=== PATIENT | male | born 1945 | race Caucasian/White ===

== ENCOUNTER → 2018-09-20 09:10 | Outpatient (CLI) | payer OTHER, SELFPAY ==
[2018-09-20 09:46] LABS: Hemoglobin A1C% w Est Avg Glu 8.7 % (4.0-6.0)
[2018-09-20 09:53] LABS: Creatinine Urine Random 40.2 mg/dL
[2018-09-20 10:01] LABS: Microalbumi Creatinin Ratio Ur 14.9 ug/mg CR (<30); Microalbumin Urine Random < 0.6 mg/dL (0-1.6)
[2018-09-20 10:07] LABS: Alanine Aminotransferase 22 IU/L (21-72); Albumin 4.1 g/dL (3.5-5.0); Albumin Globulin Ratio 1.5 (1.0-2.8); Alkaline Phosphatase 61 U/L (38-126); Aspartate Aminotransferase 16 IU/L (17-59); Bilirubin Total 0.3 mg/dL (0.2-1.3); Blood Urea Nitrogen 25 mg/dL (9-20); Carbon Dioxide 27 mmol/L (22-32); Chloride 102 mmol/L (98-107); Cholesterol 255 mg/dL (140-199); Estimated Glomerular Filt Rate > 60.0 mL/min (>60); Globulin 2.7 g/dL (1.7-4.1); Glucose 181 mg/dL (80-110); HDL Cholesterol 29 mg/dL (40-60); HEMOLYSIS < 15 (0-50); LDL Cholesterol Calculated 185 mg/dL (<100); Potassium 5.3 mmol/L (3.4-5.1); Sodium 142 mmol/L (137-145); Total Protein 6.8 g/dL (6.3-8.2); Triglycerides 204 mg/dL (35-150)
== END ==
PROVIDERS: Family Provider Internal Medicine Cardiovascular Disease; PCP Physician Assistant; Referring Provider Ophthalmology; Visit Provider Physician Assistant
DX: E11.8 Type 2 diabetes mellitus with unspecified complications (principal); E78.2 Mixed hyperlipidemia; I10 Essential (primary) hypertension; I25.10 Atherosclerotic heart disease of native coronary artery without angina pectoris
CPT/HCPCS: 36415; 80053; 80061; 82043; 82570; 83036

== ENCOUNTER → 2018-11-22 10:57 | Outpatient (CLI) | payer OTHER, SELFPAY ==
[2018-11-24 19:36] LABS: Fecal Immunochemical Test NOT DETECTED
== END ==
PROVIDERS: Family Provider Internal Medicine Cardiovascular Disease; PCP Physician Assistant; Visit Provider Physician Assistant
DX: Z12.11 Encounter for screening for malignant neoplasm of colon (principal)
CPT/HCPCS: 82274

== ENCOUNTER → 2019-05-01 10:21 | Outpatient (CLI) | payer OTHER, SELFPAY ==
[2019-05-01 12:13] LABS: Creatinine Urine Random 84.4 mg/dL
[2019-05-01 12:14] LABS: Alanine Aminotransferase 15 IU/L (21-72); Albumin 4.1 g/dL (3.5-5.0); Albumin Globulin Ratio 1.4 (1.0-2.8); Alkaline Phosphatase 67 U/L (38-126); Aspartate Aminotransferase 16 IU/L (17-59); BUN Creatinine Ratio 18.2 (6-22); Bilirubin Total 0.2 mg/dL (0.2-1.3); Blood Urea Nitrogen 20 mg/dL (9-20); Calcium 9.7 mg/dL (8.4-10.2); Carbon Dioxide 29 mmol/L (22-32); Chloride 102 mmol/L (98-107); Cholesterol 252 mg/dL (140-199); Estimated Glomerular Filt Rate > 60.0 mL/min (>60); Globulin 2.9 g/dL (1.7-4.1); Glucose 142 mg/dL (80-110); HDL Cholesterol 22 mg/dL (40-60); HEMOLYSIS < 15 (0-50); LDL Cholesterol Calculated 151 mg/dL (<100); Sodium 140 mmol/L (137-145); Triglycerides 393 mg/dL (35-150)
[2019-05-01 12:19] LABS: Microalbumi Creatinin Ratio Ur 29.6 ug/mg CR (<30); Microalbumin Urine Random 2.5 mg/dL (0-1.6)
== END ==
PROVIDERS: PCP Physician Assistant; Visit Provider Physician Assistant
DX: E11.8 Type 2 diabetes mellitus with unspecified complications (principal); E78.2 Mixed hyperlipidemia; I10 Essential (primary) hypertension; I25.10 Atherosclerotic heart disease of native coronary artery without angina pectoris; Z79.4 Long term (current) use of insulin
CPT/HCPCS: 36415; 80053; 80061; 82043; 82570; 83036

== ENCOUNTER → 2019-10-02 10:46 | Outpatient (CLI) | payer OTHER, MEDICAID, SELFPAY ==
[2019-10-02 12:30] LABS: Hemoglobin A1C% w Est Avg Glu 7.6 % (4.0-6.0)
[2019-10-02 12:31] LABS: Creatinine Urine Random 129.1 mg/dL
[2019-10-02 12:32] LABS: Alanine Aminotransferase 14 IU/L (<50); Albumin Globulin Ratio 1.5 (1.0-2.8); Alkaline Phosphatase 58 U/L (38-126); Aspartate Aminotransferase 22 IU/L (17-59); Bilirubin Total 0.4 mg/dL (0.2-1.3); Blood Urea Nitrogen 16 mg/dL (9-20); Calcium 9.7 mg/dL (8.4-10.2); Carbon Dioxide 29 mmol/L (22-32); Chloride 103 mmol/L (98-107); Cholesterol 261 mg/dL (140-199); Estimated Glomerular Filt Rate > 60.0 mL/min (>60); Globulin 2.7 g/dL (1.7-4.1); Glucose 143 mg/dL (80-110); HDL Cholesterol 24 mg/dL (40-60); HEMOLYSIS < 15 (0-50); LDL Cholesterol Calculated 186 mg/dL (<100); Sodium 140 mmol/L (137-145); Total Protein 6.7 g/dL (6.3-8.2); Triglycerides 256 mg/dL (35-150)
[2019-10-02 12:37] LABS: Microalbumi Creatinin Ratio Ur 35.6 ug/mg CR (<30); Microalbumin Urine Random 4.6 mg/dL (0-1.6)
[2019-10-02 12:39] LABS: Potassium 5.7 mmol/L (3.4-5.1)
[2019-10-02 13:03] LABS: Prostate Specific Antigen Scrn 15.2 ng/mL (0.1-4.0)
== END ==
PROVIDERS: PCP Physician Assistant; Visit Provider Physician Assistant
DX: Z12.5 Encounter for screening for malignant neoplasm of prostate (principal); E11.8 Type 2 diabetes mellitus with unspecified complications; E78.2 Mixed hyperlipidemia; I10 Essential (primary) hypertension; I25.10 Atherosclerotic heart disease of native coronary artery without angina pectoris
CPT/HCPCS: 36415; 80053; 80061; 82043; 82570; 83036; G0103

== ENCOUNTER → 2019-10-09 09:49 | Outpatient (CLI) | payer OTHER, MEDICAID, SELFPAY ==
[2019-10-09 11:26] LABS: HEMOLYSIS < 15 (0-50); Potassium 4.5 mmol/L (3.4-5.1)
== END ==
PROVIDERS: PCP Physician Assistant; Visit Provider Physician Assistant
DX: E87.5 Hyperkalemia (principal)
CPT/HCPCS: 36415; 84132

== ENCOUNTER → 2020-06-24 10:05 | Outpatient (CLI) | payer OTHER, MEDICAID, SELFPAY ==
[2020-06-24 11:50] LABS: Add Manual Diff / Slide Review NO; Basophils Absolute Auto 0 /uL (0-100); Basophils Percent Auto 0.4 % (0-2); Eosinophils Absolute Auto 700 /uL (0-450); Eosinophils Percent Auto 7.9 % (2-4); Hematocrit 40.6 % (41-53); Hemoglobin 13.4 g/dL (13.5-17.5); Lymphocytes Absolute Auto 2600 /uL (1100-4500); Lymphocytes Percent Auto 28.5 % (25-40); Mean Corpuscular HGB Conc 32.9 % (30-36); Mean Corpuscular Hemoglobin 28.1 PG (26-34); Mean Corpuscular Volume 85.5 fL (80-100); Monocytes Absolute Auto 600 /uL (0-900); Monocytes Percent Auto 6.5 % (3-14); Neutrophils Absolute Auto 5200 /uL (1500-7000); Neutrophils Percent Auto 56.7 % (50-75); Platelet Count 215 X10^3/uL (150-400); Red Blood Cell Count 4.74 X10^6/uL (4.5-5.9); Red Cell Distribution Width 14.8 % (11.6-14.8); White Blood Cell Count 9.1 X10^3/uL (4.5-11.0)
[2020-06-24 12:00] LABS: Hemoglobin A1C% w Est Avg Glu 7.8 % (4.0-6.0)
[2020-06-24 12:23] LABS: Alanine Aminotransferase 13 IU/L (<50); Albumin 4.1 g/dL (3.5-5.0); Albumin Globulin Ratio 1.5 (1.0-2.8); Alkaline Phosphatase 62 U/L (38-126); Aspartate Aminotransferase 22 IU/L (17-59); BUN Creatinine Ratio 20.2 (6-22); Bilirubin Total 0.4 mg/dL (0.2-1.3); Blood Urea Nitrogen 21 mg/dL (9-20); Carbon Dioxide 29 mmol/L (22-32); Chloride 103 mmol/L (98-107); Cholesterol 268 mg/dL (140-199); Estimated Glomerular Filt Rate > 60.0 mL/min (>60); Globulin 2.8 g/dL (1.7-4.1); Glucose 137 mg/dL (80-110); HDL Cholesterol 25 mg/dL (40-60); HEMOLYSIS < 15 (0-50); LDL Cholesterol Calculated 171 mg/dL (<100); Sodium 138 mmol/L (137-145); Total Protein 6.9 g/dL (6.3-8.2); Triglycerides 362 mg/dL (35-150)
[2020-06-24 12:24] LABS: Potassium 5.7 mmol/L (3.4-5.1)
[2020-06-24 12:52] LABS: Prostate Specific Antigen 12.8 ng/mL (0.10-4.00)
== END ==
PROVIDERS: PCP Internal Medicine; Referring Provider Internal Medicine; Visit Provider Internal Medicine
DX: E11.65 Type 2 diabetes mellitus with hyperglycemia (principal); E66.01 Morbid (severe) obesity due to excess calories; I10 Essential (primary) hypertension; I25.10 Atherosclerotic heart disease of native coronary artery without angina pectoris; R97.20 Elevated prostate specific antigen [PSA]
CPT/HCPCS: 36415; 80053; 80061; 83036; 84153; 85025

== ENCOUNTER → 2020-12-25 08:30 | Outpatient (CLI) | payer OTHER, MEDICAID, SELFPAY ==
[2020-12-25 09:20] LABS: BUN Creatinine Ratio 17.6 (6-22); Blood Urea Nitrogen 63 mg/dL (9-20); Calcium 10.1 mg/dL (8.4-10.2); Carbon Dioxide 31 mmol/L (22-32); Chloride 97 mmol/L (98-107); Estimated Glomerular Filt Rate 16.9 mL/min (>60); Glucose 156 mg/dL (80-110); HEMOLYSIS < 15 (0-50); Potassium 4.8 mmol/L (3.4-5.1); Sodium 135 mmol/L (137-145)
== END ==
PROVIDERS: PCP Internal Medicine; Referring Provider Internal Medicine Cardiovascular Disease; Visit Provider Internal Medicine Cardiovascular Disease
DX: I25.10 Atherosclerotic heart disease of native coronary artery without angina pectoris (principal); I48.19 Other persistent atrial fibrillation
CPT/HCPCS: 36415; 80048

== ENCOUNTER → 2021-01-12 11:11 | Outpatient (CLI) | payer OTHER, MEDICAID, SELFPAY ==
[2021-01-12 12:17] LABS: BUN Creatinine Ratio 20.5 (6-22); Blood Urea Nitrogen 53 mg/dL (9-20); Calcium 10.6 mg/dL (8.4-10.2); Carbon Dioxide 28 mmol/L (22-32); Chloride 104 mmol/L (98-107); Estimated Glomerular Filt Rate 24.5 mL/min (>60); Glucose 127 mg/dL (80-110); HEMOLYSIS < 15 (0-50); Potassium 5.2 mmol/L (3.4-5.1); Sodium 140 mmol/L (137-145)
== END ==
PROVIDERS: PCP Internal Medicine; Referring Provider Internal Medicine Cardiovascular Disease; Visit Provider Internal Medicine Cardiovascular Disease
DX: I48.91 Unspecified atrial fibrillation (principal); I35.0 Nonrheumatic aortic (valve) stenosis
CPT/HCPCS: 36415; 80048

== ENCOUNTER → 2021-01-29 11:45 | Outpatient (CLI) | payer OTHER, MEDICAID, SELFPAY ==
[2021-01-29 12:56] LABS: BUN Creatinine Ratio 25.2 (6-22); Blood Urea Nitrogen 40 mg/dL (9-20); Calcium 9.9 mg/dL (8.4-10.2); Carbon Dioxide 25 mmol/L (22-32); Chloride 106 mmol/L (98-107); Estimated Glomerular Filt Rate 42.9 mL/min (>60); Glucose 147 mg/dL (80-110); HEMOLYSIS < 15 (0-50); Sodium 140 mmol/L (137-145)
[2021-01-29 12:58] LABS: Potassium 5.8 mmol/L (3.4-5.1)
== END ==
PROVIDERS: PCP Internal Medicine; Referring Provider Internal Medicine; Visit Provider Internal Medicine
DX: I35.0 Nonrheumatic aortic (valve) stenosis (principal); I51.89 Other ill-defined heart diseases; N17.9 Acute kidney failure, unspecified
CPT/HCPCS: 36415; 80048

== ENCOUNTER → 2021-02-24 11:23 | Outpatient (CLI) | payer OTHER, MEDICAID, SELFPAY ==
[2021-02-24 13:01] LABS: Blood Urea Nitrogen 35 mg/dL (9-20); Calcium 9.6 mg/dL (8.4-10.2); Carbon Dioxide 23 mmol/L (22-32); Chloride 107 mmol/L (98-107); Estimated Glomerular Filt Rate 45.2 mL/min (>60); Glucose 174 mg/dL (80-110); HEMOLYSIS 17 (0-50); Sodium 137 mmol/L (137-145)
[2021-02-24 13:05] LABS: Potassium 5.6 mmol/L (3.4-5.1)
== END ==
PROVIDERS: PCP Internal Medicine; Referring Provider Internal Medicine; Visit Provider Internal Medicine
DX: Z01.812 Encounter for preprocedural laboratory examination (principal)
CPT/HCPCS: 36415; 80048

== ENCOUNTER → 2021-03-17 13:16 | Outpatient (CLI) | payer OTHER, MEDICAID, SELFPAY ==
[2021-03-17 14:55] LABS: BUN Creatinine Ratio 20.2 (6-22); Blood Urea Nitrogen 35 mg/dL (9-20); Calcium 10.2 mg/dL (8.4-10.2); Carbon Dioxide 26 mmol/L (22-32); Chloride 107 mmol/L (98-107); Estimated Glomerular Filt Rate 38.9 mL/min (>60); Glucose 132 mg/dL (80-110); HEMOLYSIS < 15 (0-50); Sodium 140 mmol/L (137-145)
[2021-03-17 14:56] LABS: Potassium 5.7 mmol/L (3.4-5.1)
== END ==
PROVIDERS: PCP Internal Medicine; Referring Provider Physician Assistant; Visit Provider Physician Assistant
DX: N17.9 Acute kidney failure, unspecified (principal)
CPT/HCPCS: 36415; 80048

== ENCOUNTER → 2021-03-31 11:21 | Outpatient (CLI) | payer OTHER, MEDICAID, SELFPAY ==
[2021-03-31 12:47] LABS: BUN Creatinine Ratio 19.7 (6-22); Blood Urea Nitrogen 29 mg/dL (9-20); Calcium 9.5 mg/dL (8.4-10.2); Carbon Dioxide 23 mmol/L (22-32); Chloride 107 mmol/L (98-107); Glucose 95 mg/dL (80-110); HEMOLYSIS < 15 (0-50); Potassium 5.8 mmol/L (3.4-5.1); Sodium 137 mmol/L (137-145)
== END ==
PROVIDERS: PCP Internal Medicine; Referring Provider Internal Medicine Interventional Cardiology; Visit Provider Internal Medicine Interventional Cardiology
DX: R74.8 Abnormal levels of other serum enzymes (principal)
CPT/HCPCS: 36415; 80048

== ENCOUNTER → 2021-05-05 07:56 | Outpatient (CLI) | payer OTHER, MEDICAID, SELFPAY ==
[2021-05-05 10:52] LABS: BUN Creatinine Ratio 29.7 (6-22); Blood Urea Nitrogen 51 mg/dL (9-20); Calcium 9.4 mg/dL (8.4-10.2); Carbon Dioxide 24 mmol/L (22-32); Chloride 107 mmol/L (98-107); Estimated Glomerular Filt Rate 39.2 mL/min (>60); Glucose 135 mg/dL (80-110); HEMOLYSIS < 15 (0-50); Potassium 5.1 mmol/L (3.4-5.1); Sodium 139 mmol/L (137-145)
== END ==
PROVIDERS: PCP Internal Medicine; Referring Provider Internal Medicine; Visit Provider Internal Medicine
DX: E11.65 Type 2 diabetes mellitus with hyperglycemia (principal); I25.10 Atherosclerotic heart disease of native coronary artery without angina pectoris; I35.0 Nonrheumatic aortic (valve) stenosis
CPT/HCPCS: 36415; 80048; 83036

== ENCOUNTER 2021-05-21 11:41 | Emergency (ER) | payer OTHER, MEDICAID, SELFPAY ==
[2021-05-21] VITALS (9 sets, daily range): BP systolic 81–116; BP diastolic 49–60; PULSE 96–144; RESP 7–21; O2SAT 92–100
--- NOTE | 2021-05-21 11:34 | DI.RAD.S_ITS ---
PROCEDURE: XR CHEST 1V INDICATIONS: V tach TECHNIQUE: One view of the chest was acquired. COMPARISON: None. FINDINGS: Surgical changes and devices: Post median sternotomy and CABG. Lungs and pleura: Low lung volumes. Suspect left lower lobe airspace opacity. No pleural effusions or pneumothorax. Mediastinum: Mediastinal contours appear normal. Heart size is enlarged. Bones and chest wall: No suspicious bony lesions. Overlying soft tissues appear unremarkable. IMPRESSION: Low lung volumes. A suspect left lower lobe airspace opacity. This could represent atelectasis, pneumonia, or aspiration. Cardiomegaly. Post CABG. Dictated by: Isrrael Dubois M.D. on 05/21/2021 at 12:19 Approved by: Isrrael Dubois M.D. on 05/21/2021 at 12:21
[2021-05-21] MEDS: AMIODARONE 150 MG/100 ML PIGGYBACK 600 MG IV ×2 (11:47→12:17)
[2021-05-21 11:48] LABS: Add Manual Diff / Slide Review NO; Basophils Absolute Auto 100 /uL (0-100); Basophils Percent Auto 0.5 % (0-2); Eosinophils Absolute Auto 200 /uL (0-450); Eosinophils Percent Auto 1.4 % (2-4); Hematocrit 24.3 % (41-53); Hemoglobin 7.8 g/dL (13.5-17.5); Lymphocytes Absolute Auto 1400 /uL (1100-4500); Lymphocytes Percent Auto 13.1 % (25-40); Mean Corpuscular HGB Conc 32.3 % (30-36); Mean Corpuscular Hemoglobin 27.5 PG (26-34); Monocytes Absolute Auto 600 /uL (0-900); Monocytes Percent Auto 5.3 % (3-14); Neutrophils Absolute Auto 8600 /uL (1500-7000); Neutrophils Percent Auto 79.7 % (50-75); Platelet Count 308 X10^3/uL (150-400); Red Blood Cell Count 2.86 X10^6/uL (4.5-5.9); Red Cell Distribution Width 14.9 % (11.6-14.8); White Blood Cell Count 10.8 X10^3/uL (4.5-11.0)
[2021-05-21] MEDS: NITROGLYCERIN 0.4 MG SL TAB SL (11:52)
[2021-05-21] MEDS: MIDAZOLAM 2 MG/2 ML VIAL (11:54)
[2021-05-21 11:55] LABS: INR 1.4 (0.9-1.3); Prothrombin Time 15.4 SECONDS (10.1-12.7)
[2021-05-21] MEDS: NITROGLYCERIN 50 MG/250 ML INFUS..BTL IV (11:55)
[2021-05-21 11:59] LABS: Alanine Aminotransferase 13 IU/L (<50); Albumin 4.1 g/dL (3.5-5.0); Albumin Globulin Ratio 1.5 (1.0-2.8); Alkaline Phosphatase 62 U/L (38-126); Aspartate Aminotransferase 21 IU/L (17-59); BUN Creatinine Ratio 21.6 (6-22); Bilirubin Total 0.5 mg/dL (0.2-1.3); Blood Urea Nitrogen 56 mg/dL (9-20); Carbon Dioxide 21 mmol/L (22-32); Chloride 102 mmol/L (98-107); Estimated Glomerular Filt Rate 24.4 mL/min (>60); Globulin 2.8 g/dL (1.7-4.1); Glucose 337 mg/dL (80-110); HEMOLYSIS < 15 (0-50); Magnesium 2.2 mg/dL (1.6-2.3); Potassium 4.7 mmol/L (3.4-5.1); Sodium 136 mmol/L (137-145); Total Protein 6.9 g/dL (6.3-8.2)
[2021-05-21 12:11] LABS: NT-proBNP (BNP-Adult 18+) 3200 pg/mL (<125)
--- NOTE | 2021-05-21 12:13 | PC.NURSE ---
Pt was having dizziness at home,they arrived and he was in afib. While medics in field pt had a moment of vtach. Pt also having chest pain. Pt also told Dr Arias he had black stools a couple of weeks ago,told pcp at that time.
[2021-05-21] MEDS: HEPARIN 5,000 UNIT/ML VIAL 3000 UNIT IV (12:25)
[2021-05-21] MEDS: HEPARIN DRIP 25,000 UNIT/500 ML IV.SOLN 20 UNIT IV (12:26)
[2021-05-21 12:36] LABS: Troponin I 0.552 ng/mL (0.01-0.034)
[2021-05-21 13:10] LABS: COVID19 - ADMIT (NP swab/PCR) Negative (Negative)
--- NOTE | 2021-05-21 18:24 | ED.ARRPALP ---
HPI - Arrhythmia/Palpitations General Chief Complaint: Arrhythmia/Palpitations Stated Complaint: a-flutter w/ RVR, Chest pain Time Seen by Provider: 05/21/21 11:44 Source: patient and EMS Mode of arrival: EMS History of Present Illness HPI narrative: 75-year-old gentleman with a history of diabetes, hypertension, hyperlipidemia paroxysmal atrial fibrillation currently on apixaban, congestive heart failure presents via medics complaining of chest pain and palpitations started approximately 2 hours prior to arrival. As patient rolls into the emergency department he is pale diaphoretic in atrial fibrillation with rates in the 140s with intermittent runs of ventricular tachycardia associated with increasing chest pain diaphoresis and complaints of rapid heart rate from the patient. He is able to speak in full sentences. He describes no recent fevers, cough, chills, increased orthopnea or dyspnea, no increase in anginal type pains, no abdominal pain, diarrhea, hematuria or dysuria. Related Data Home Medications Medication Instructions Recorded Confirmed coenzyme Q10 100 mg capsule (Co 100 mg PO DAILY 11/07/18 05/08/21 Q-10) dorzolamide 22.3 mg-timolol 6.8 OPHTHALMIC (EYE) 05/20/20 05/08/21 mg/mL eye drops apixaban 5 mg tablet 5 mg PO BID tab 01/15/21 05/08/21 nitroglycerin 0.4 mg sublingual 0.4 mg SUBLINGUAL Q5-15M PRN tab 01/15/21 05/08/21 tablet aspirin 81 mg tablet,delayed 81 mg PO DAILY 05/08/21 05/08/21 release (Adult Low Dose Aspirin) torsemide 20 mg tablet 20 mg PO DAILY 05/08/21 05/08/21 Previous Rx's Medication Instructions Recorded insulin syringe-needle U-100 1 mL #270 each 11/07/19 29 gauge x 1/2 (Advocate Syringes) exenatide microspheres 2 mg/0.65 2 mg SUBCUT QWEEK #12 each 10/09/20 mL subcutaneous pen injector (Bydureon) lisinopril 20 mg tablet (Prinivil) 20 mg PO Q DAY #90 tab 10/09/20 blood sugar diagnostic (OneTouch See Rx Instructions .ROUTE 01/29/21 Verio test strips) .COMPLEX #250 strip Lantus U-100 Insulin 100 unit/mL 60 unit SUBCUT Q12H #100 ml NS 02/06/21 subcutaneous solution (insulin glargine) tamsulosin 0.4 mg capsule 0.8 mg PO DAILY #180 cap 05/13/21 Allergies Allergy/AdvReac Type Severity Reaction Status Date / Time Frospgy-Pvx-Rfs Reductase AdvReac Severe joint pain Verified 05/21/21 11:39 Inhibitor and muscle aches Review of Systems Review of Systems Narrative: Remainder of complete review of systems is otherwise unremarkable except for that included in the HPI. Patient History Medical History Chronic renal failure, stage 3a Controlled type 2 diabetes mellitus, with long-term current use of insulin Coronary artery disease involving [place] coronary artery of [place] heart without angina pectoris (03/17/11) Diabetic retinopathy (03/17/11) Diastolic dysfunction Elevated prostate specific antigen (PSA) (03/17/11) Essential hypertension (03/03/06) Mixed hyperlipidemia (06/13/12) Morbid obesity (03/03/06) Nonrheumatic aortic valve stenosis (08/30/16) Surgical History History of tonsillectomy Status post aorto-coronary artery bypass graft (~1999) Status post appendectomy Social History Smoking Status: Never smoker second hand exposure: No alcohol intake: former (I only drank very seldomly mostly when I was 23, but I don't drink anymore.) substance use type: does not use Smoking Status: Never smoker Exam Narrative Exam Narrative: General: Acutely ill-appearing in obvious distress pale and diaphoretic HEENT: Moist mucous membranes, normal sclera with reactive pupils, Respiratory: Lungs with minor bibasilar crackles but, no wheezing no rales no rhonchi. Full and symmetrical air movement Cardiac: Irregular and tachycardic Abdomen: Soft, nontender, good bowel tones, no flank pain Skin: Pale and diaphoretic, no rashes Neurologic: Globally weak but otherwise Grossly neurologically intact with no obvious asymmetries or abnormalities Extremities: No trauma, well perfused Psych: Cooperative, appropriate insight and affect Initial Vital Signs Initial Vital Signs: Vital Signs Pulse Rate 144 H 05/21/21 11:40 Respiratory Rate 21 05/21/21 11:40 Pulse Oximetry 100 05/21/21 11:40 Procedures Cardioversion Time of Cardioversion: 11:45 Indication: Hemodynamic instability with ongoing chest pain Stability: Unstable Number of attempts (shocks): 1 Joules used: 150 Cardiac rhythm post-cardioversion: Sinus rhythm with significant ST T wave changes and significant sinus arrhy Additional Comments: Emergent situation applied and procedural sedation was not used prior to the single shock delivered Course Orders Ordered: ED Orders 05/21/21 12:03 COVID19 - ADMIT (INTERLOCKER swab/PCR) Stat Discontinued Medications Aspirin (Aspirin 81 Mg Chew Tab) 324 mg PO NOW ONE Stop: 05/21/21 11:46 Last Admin: 05/21/21 11:52 Dose: Not Given Documented by: FABRIZIO Heparin Sodium (Porcine) (Heparin 5,000 Unit/Ml Vial) 3,000 unit IV NOW ONE Stop: 05/21/21 11:45 Last Admin: 05/21/21 12:25 Dose: 3,000 unit Documented by: HELIO Amiodarone HCl/Dextrose (Nexterone) 150 mg in 100 mls @ 600 mls/hr IV NOW ONE; Protocol Stop: 05/21/21 11:43 Last Infusion: 05/21/21 11:57 Dose: 0 mls/hr Documented by: Admin: 05/21/21 11:47 Dose: 600 mls/hr Documented by: FABRIZIO Nitroglycerin (Nitroglycerin) 50 mg in 250 mls @ 1.5 mls/hr IV TITRATE ELVIA; Protocol Last Titration: 05/21/21 12:38 Dose: 10 mcg/min, 3 mls/hr Documented by: Titration: 05/21/21 12:16 Dose: 10 mcg/min, 3 mls/hr Documented by: Admin: 05/21/21 11:55 Dose: 5 mcg/min, 1.5 mls/hr Documented by: FABRIZIO Heparin Sodium/Dextrose (Heparin Drip) 25,000 unit in 500 mls @ 20 mls/hr IV CONT ELVIA; Protocol Last Titration: 05/21/21 12:38 Dose: 1,000 units/hr, 20 mls/hr Documented by: Admin: 05/21/21 12:26 Dose: 1,000 units/hr, 20 mls/hr Documented by: HELIO Amiodarone HCl/Dextrose (Nexterone) 150 mg in 100 mls @ 600 mls/hr IV NOW ONE; Protocol Stop: 05/21/21 12:24 Last Infusion: 05/21/21 12:32 Dose: 0 mls/hr Documented by: Admin: 05/21/21 12:17 Dose: 600 mls/hr Documented by: RICHARD Nitroglycerin (Nitroglycerin 0.4 Mg Sl Tab) 0.4 mg SL [id number] PRN PRN Reason: Chest Pain Last Admin: 05/21/21 11:52 Dose: 0.4 mg Documented by: BTSHARON Vital Signs Vital signs: Vital Signs - 8 hr 05/21/21 11:40 05/21/21 11:52 05/21/21 11:55 Pulse Rate 144 H 118 H 116 H Respiratory Rate 21 Blood Pressure 116/58 L 116/58 L Pulse Oximetry 100 05/21/21 11:58 05/21/21 12:00 05/21/21 12:05 Pulse Rate 100 H 96 H 97 H Respiratory Rate 7 L 12 21 Blood Pressure 88/49 L 81/50 L 87/52 L Pulse Oximetry 92 93 100 05/21/21 12:09 05/21/21 12:10 05/21/21 12:15 Pulse Rate 96 H 96 H 99 H Respiratory Rate 12 15 14 Blood Pressure 98/57 L 97/60 103/53 L Pulse Oximetry 100 100 100 MDM - Arrhythmia/Palpitations Lab Data Result diagrams: 05/21/21 11:40 05/21/21 11:40 Labs: Lab Results 05/21/21 05/21/21 05/21/21 Range/Units 11:40 11:40 11:40 WBC 10.8 (4.5-11.0) X10^3/uL RBC 2.86 L (4.5-5.9) X10^6/uL Hgb 7.8 L (13.5-17.5) g/dL Hct 24.3 L (41-53) % MCV 85.0 (80-100) fL MCH 27.5 (26-34) PG MCHC 32.3 (30-36) % RDW 14.9 H (11.6-14.8) % Plt Count 308 (150-400) X10^3/uL Neut % (Auto) 79.7 H (50-75) % Lymph % (Auto) 13.1 L (25-40) % [place] % (Auto) 5.3 (3-14) % Eos % (Auto) 1.4 L (2-4) % Baso % (Auto) 0.5 (0-2) % Neut # (Auto) 8600 H (7474-8248) /uL Lymph # (Auto) 1400 (4182-8880) /uL [place] # (Auto) 600 (0-900) /uL Eos # (Auto) 200 (0-450) /uL Baso # (Auto) 100 (0-100) /uL PT 15.4 H (10.1-12.7) SECONDS INR 1.4 H (0.9-1.3) Sodium 136 L (137-145) mmol/L Potassium 4.7 (3.4-5.1) mmol/L Chloride 102 (98-107) mmol/L Carbon Dioxide 21 L (22-32) mmol/L BUN 56 H (9-20) mg/dL Creatinine 2.59 H (0.66-1.25) mg/dL Estimated GFR 24.4 L (>60) mL/min BUN/Creatinine Ratio 21.6 (6-22) Glucose 337 H (80-110) mg/dL Calcium 10.0 (8.4-10.2) mg/dL Magnesium 2.2 (1.6-2.3) mg/dL Total Bilirubin 0.5 (0.2-1.3) mg/dL AST 21 (17-59) IU/L ALT 13 (<50) IU/L Alkaline Phosphatase 62 (38-126) U/L Troponin I 0.552 H* (0.01-0.034) ng/mL NT-Pro-B Natriuret Pep 3200 H (<125) pg/mL Total Protein 6.9 (6.3-8.2) g/dL Albumin 4.1 (3.5-5.0) g/dL Globulin 2.8 (1.7-4.1) g/dL Albumin/Globulin Ratio 1.5 (1.0-2.8) SARS-CoV-2 (PCR) (Negative) 05/21/21 Range/Units 12:03 WBC (4.5-11.0) X10^3/uL RBC (4.5-5.9) X10^6/uL Hgb (13.5-17.5) g/dL Hct (41-53) % MCV (80-100) fL MCH (26-34) PG MCHC (30-36) % RDW (11.6-14.8) % Plt Count (150-400) X10^3/uL Neut % (Auto) (50-75) % Lymph % (Auto) (25-40) % [place] % (Auto) (3-14) % Eos % (Auto) (2-4) % Baso % (Auto) (0-2) % Neut # (Auto) (8461-6959) /uL Lymph # (Auto) (9058-1006) /uL [place] # (Auto) (0-900) /uL Eos # (Auto) (0-450) /uL Baso # (Auto) (0-100) /uL PT (10.1-12.7) SECONDS INR (0.9-1.3) Sodium (137-145) mmol/L Potassium (3.4-5.1) mmol/L Chloride (98-107) mmol/L Carbon Dioxide (22-32) mmol/L BUN (9-20) mg/dL Creatinine (0.66-1.25) mg/dL Estimated GFR (>60) mL/min BUN/Creatinine Ratio (6-22) Glucose (80-110) mg/dL Calcium (8.4-10.2) mg/dL Magnesium (1.6-2.3) mg/dL Total Bilirubin (0.2-1.3) mg/dL AST (17-59) IU/L ALT (<50) IU/L Alkaline Phosphatase (38-126) U/L Troponin I (0.01-0.034) ng/mL NT-Pro-B Natriuret Pep (<125) pg/mL Total Protein (6.3-8.2) g/dL Albumin (3.5-5.0) g/dL Globulin (1.7-4.1) g/dL Albumin/Globulin Ratio (1.0-2.8) SARS-CoV-2 (PCR) Negative (Negative) Imaging Data Chest x-ray: Radiologist's Impresson: FINDINGS: Surgical changes and devices: Post median sternotomy and CABG. Lungs and pleura: Low lung volumes. Suspect left lower lobe airspace opacity. No pleural effusions or pneumothorax. Mediastinum: Mediastinal contours appear normal. Heart size is enlarged. Bones and chest wall: No suspicious bony lesions. Overlying soft tissues appear unremarkable. IMPRESSION: Low lung volumes. A suspect left lower lobe airspace opacity. This could represent atelectasis, pneumonia, or aspiration. Cardiomegaly. Post CABG. Dictated by: Isrrael Dubois M.D. on 05/21/2021 at 12:19 ECG Data Interpretation: EKG 1. Atrial fibrillation at a rate of [address] T wave changes consistent with ischemia EKG 2. Post cardioversion Sinus rhythm with significant irregularity. ST elevation in lead AVR with deep ST depression in all precordial leads MDM Narrative Medical decision making narrative: 75-year-old gentleman presents with acute chest pain atrial fibrillation and rapid ventricular response with intermittent episodes of unstable ventricular tachycardia. On arrival in the emergency department he is given 150 mg of amiodarone for rate and rhythm control. IV fluids are started. Nitroglycerin drip is started and is somewhat helpful in controlling overall chest pain. Heparin drip is started. As he continued to have episodes of ventricular tachycardia and increasing pain with his atrial fibrillation decision was made to emergently cardiovert him. He was given 2 mg of Versed prior to procedure of but not completely sedated due to emergency situation. He did tolerate the single synchronized shock at 150 joules well and converted to sinus rhythm with significant irregularities and a significant ischemic changes as described above. He was at this point having moderate hypertensions did seem to be responding to fluids. He was given an additional 150 mg of amiodarone for a total of 300. The majority of his cardiac care is at [facility] in [place]. There emergency room is contacted and an ER to ER transfer to is facilitated for presumed acute coronary syndrome with not STEMI equivalent in an unstable patient. ALS transport is arranged. At time of transfer patient is stable in sinus rhythm with irregularity, chest pain down to 1 to 2/10 with nitro drip and heparin drips in place, improved overall color and resolved diaphoresis. Critical Care Time Critical Care Time Critical Care Time: Yes Total Critical Care Time: 3 Attestation: Critical care time is separate from other billable procedures. There is a high probability of a significant, sudden or life-threatening deterioration that requires my full and direct attention, intervention and personal management. This critical care time includes consultation with family and other consulting doctors, review of records, and interpretation of data from labs, EKGs and imaging as well as managements of acute ST-elevation MA, unstable atrial fibrillation and tachycardia with ACLS protocols used for treatment of unstable ventricular tachycardia and emergent cardioversion. Discharge Plan Departure Patient Disposition: [facility] Clinical Impression: Ventricular tachycardia, Atrial fibrillation with rapid ventricular response, Chest pain due to coronary artery disease, Congestive heart failure, ACS (acute coronary syndrome) Prescriptions: No Action coenzyme Q10 [Co Q-10] 100 mg capsule 100 mg PO DAILY RF: 0 lisinopril [Prinivil] 20 mg tablet 20 mg PO Q DAY Qty: 90 RF: 3 Bydureon 2 mg/0.65 mL pen injector 2 mg subcut QWEEK Qty: 12 RF: 3 OneTouch Verio test strips Strip See Rx Instructions .ROUTE .COMPLEX Qty: 250 RF: 3 tamsulosin 0.4 mg capsule 0.8 mg PO DAILY Qty: 180 RF: 3 dorzolamide-timolol 22.3-6.8 mg/mL drops ophthalmic (eye) RF: 0 Lantus U-100 Insulin 100 unit/mL solution 60 unit SUBCUT Q12H Qty: 100 RF: 6 torsemide 20 mg tablet 20 mg PO DAILY RF: 0 aspirin [Adult Low Dose Aspirin] 81 mg tablet,delayed release (DR/EC) 81 mg PO DAILY RF: 0 (DME) insulin syringe-needle U-100 [Advocate Syringes] 1 mL 29 gauge x 1/2 syringe See Dose Instructions .ROUTE .MEDSUPPLY Qty: 270 RF: 3 Eliquis 5 mg tablet 5 mg PO BID RF: 0 nitroglycerin 0.4 mg tablet, sublingual 0.4 mg sublingual Q5-15M PRN (Reason: chest pain) RF: 0 Referrals: Lupillo Ramachandran MD [Primary Care Provider] -
== END 2021-05-21 12:55 | disposition short-term general hospital (02) ==
PROVIDERS: Emergency Provider Emergency Medicine; PCP Internal Medicine
DX: I47.2 Ventricular tachycardia (principal); I48.20 Chronic atrial fibrillation, unspecified; I25.10 Atherosclerotic heart disease of native coronary artery without angina pectoris; I50.9 Heart failure, unspecified; I24.9 Acute ischemic heart disease, unspecified; R00.2 Palpitations
CPT/HCPCS: 36415; 71045; 80053; 83735; 83880; 84484; 85025; 85610; 87635; 92960; 93005; 93010; 96365; 96375; 96376; 99285; 99291; C9803; J0282; J1644; J2250

== ENCOUNTER → 2021-06-26 10:10 | Outpatient (CLI) | payer OTHER, MEDICAID, SELFPAY ==
[2021-06-26 11:55] LABS: Add Manual Diff / Slide Review NO; Basophils Absolute Auto 100 /uL (0-100); Basophils Percent Auto 0.7 % (0-2); Eosinophils Absolute Auto 400 /uL (0-450); Hematocrit 38.2 % (41-53); Hemoglobin 12.2 g/dL (13.5-17.5); Lymphocytes Absolute Auto 2100 /uL (1100-4500); Lymphocytes Percent Auto 24.3 % (25-40); Mean Corpuscular HGB Conc 31.9 % (30-36); Mean Corpuscular Hemoglobin 26.1 PG (26-34); Mean Corpuscular Volume 81.7 fL (80-100); Monocytes Absolute Auto 700 /uL (0-900); Monocytes Percent Auto 7.7 % (3-14); Neutrophils Absolute Auto 5400 /uL (1500-7000); Neutrophils Percent Auto 62.3 % (50-75); Platelet Count 244 X10^3/uL (150-400); Red Blood Cell Count 4.68 X10^6/uL (4.5-5.9); Red Cell Distribution Width 16.9 % (11.6-14.8); White Blood Cell Count 8.7 X10^3/uL (4.5-11.0)
[2021-06-26 12:03] LABS: Hemoglobin A1C% w Est Avg Glu 6.1 % (4.0-6.0)
[2021-06-26 12:04] LABS: Alanine Aminotransferase 12 IU/L (<50); Albumin 4.2 g/dL (3.5-5.0); Albumin Globulin Ratio 1.2 (1.0-2.8); Alkaline Phosphatase 66 U/L (38-126); Aspartate Aminotransferase 24 IU/L (17-59); Bilirubin Total 0.4 mg/dL (0.2-1.3); Blood Urea Nitrogen 26 mg/dL (9-20); Calcium 9.9 mg/dL (8.4-10.2); Carbon Dioxide 30 mmol/L (22-32); Chloride 103 mmol/L (98-107); Estimated Glomerular Filt Rate 44.8 mL/min (>60); Globulin 3.4 g/dL (1.7-4.1); Glucose 136 mg/dL (80-110); HEMOLYSIS < 15 (0-50); Potassium 4.2 mmol/L (3.4-5.1); Sodium 142 mmol/L (137-145); Total Protein 7.6 g/dL (6.3-8.2)
== END ==
PROVIDERS: PCP Internal Medicine; Referring Provider Internal Medicine; Visit Provider Internal Medicine
DX: N18.31 Chronic kidney disease, stage 3a (principal); E11.65 Type 2 diabetes mellitus with hyperglycemia; I25.10 Atherosclerotic heart disease of native coronary artery without angina pectoris; I35.0 Nonrheumatic aortic (valve) stenosis; I10 Essential (primary) hypertension; E78.2 Mixed hyperlipidemia
CPT/HCPCS: 36415; 80053; 83036; 85025

== ENCOUNTER → 2021-08-12 09:08 | Outpatient (CLI) | payer OTHER, MEDICAID, SELFPAY ==
[2021-08-12 09:56] LABS: Hemoglobin A1C% w Est Avg Glu 7.1 % (4.0-6.0)
[2021-08-12 10:03] LABS: Blood Urea Nitrogen 30 mg/dL (9-20); Estimated Glomerular Filt Rate 35.6 mL/min (>60)
== END ==
PROVIDERS: PCP Internal Medicine; Referring Provider Internal Medicine; Visit Provider Internal Medicine
DX: E11.65 Type 2 diabetes mellitus with hyperglycemia (principal); N18.31 Chronic kidney disease, stage 3a
CPT/HCPCS: 36415; 82565; 83036; 84520

== ENCOUNTER → 2022-02-02 08:31 | Outpatient (CLI) | payer OTHER, MEDICAID, SELFPAY ==
[2022-02-02 10:24] LABS: Hemoglobin A1C% w Est Avg Glu 7.9 % (4.0-6.0)
[2022-02-02 10:35] LABS: Alanine Aminotransferase 10 IU/L (<50); Albumin 4.4 g/dL (3.5-5.0); Albumin Globulin Ratio 1.3 (1.0-2.8); Alkaline Phosphatase 90 U/L (38-126); Aspartate Aminotransferase 20 IU/L (17-59); BUN Creatinine Ratio 15.1 (6-22); Bilirubin Total 0.4 mg/dL (0.2-1.3); Blood Urea Nitrogen 28 mg/dL (9-20); Calcium 9.3 mg/dL (8.4-10.2); Carbon Dioxide 30 mmol/L (22-32); Chloride 98 mmol/L (98-107); Estimated Glomerular Filt Rate 35.9 mL/min (>60); Globulin 3.3 g/dL (1.7-4.1); Glucose 166 mg/dL (80-110); HEMOLYSIS < 15 (0-50); Potassium 4.3 mmol/L (3.4-5.1); Sodium 142 mmol/L (137-145); Total Protein 7.7 g/dL (6.3-8.2)
[2022-02-02 11:32] LABS: Free T4, Direct Thyroxine 1.25 ng/dL (0.78-2.19)
== END ==
PROVIDERS: PCP Internal Medicine; Referring Provider Internal Medicine; Visit Provider Internal Medicine
DX: E11.22 Type 2 diabetes mellitus with diabetic chronic kidney disease (principal); N18.31 Chronic kidney disease, stage 3a; I10 Essential (primary) hypertension; E78.2 Mixed hyperlipidemia; Z79.4 Long term (current) use of insulin
CPT/HCPCS: 36415; 80053; 83036; 84439; 84443

== ENCOUNTER → 2022-05-07 07:30 | Outpatient (CLI) | payer OTHER, MEDICAID, SELFPAY ==
[2022-05-07 08:14] LABS: Hemoglobin A1C% w Est Avg Glu 8.6 % (4.0-6.0)
[2022-05-07 08:15] LABS: Blood Urea Nitrogen 38 mg/dL (9-20); Carbon Dioxide 35 mmol/L (22-32); Chloride 99 mmol/L (98-107); Estimated Glomerular Filt Rate 34 mL/min (>60); Glucose 196 mg/dL (80-110); HEMOLYSIS < 15 (0-50); Potassium 4.3 mmol/L (3.4-5.1); Sodium 142 mmol/L (137-145)
[2022-05-07 08:32] LABS: Free T4, Direct Thyroxine 0.36 ng/dL (0.78-2.19)
[2022-05-07 08:46] LABS: Thyroid Stimulating Hormone 41.8 uIU/mL (0.47-4.68)
== END ==
PROVIDERS: PCP Internal Medicine; Referring Provider Internal Medicine; Visit Provider Internal Medicine
DX: E11.65 Type 2 diabetes mellitus with hyperglycemia (principal); E03.9 Hypothyroidism, unspecified; I10 Essential (primary) hypertension; N18.31 Chronic kidney disease, stage 3a
CPT/HCPCS: 36415; 80048; 83036; 84439; 84443

== ENCOUNTER → 2022-09-02 10:23 | Outpatient (CLI) | payer OTHER, MEDICAID, SELFPAY ==
[2022-09-02 11:37] LABS: Hemoglobin A1C% w Est Avg Glu 7.6 % (4.0-6.0)
[2022-09-02 11:40] LABS: BUN Creatinine Ratio 13.7 (6-22); Blood Urea Nitrogen 29 mg/dL (9-20); Calcium 8.7 mg/dL (8.4-10.2); Carbon Dioxide 33 mmol/L (22-32); Chloride 97 mmol/L (98-107); Estimated Glomerular Filt Rate 32 mL/min (>60); Glucose 149 mg/dL (80-110); HEMOLYSIS 15 (0-50); Potassium 4.2 mmol/L (3.4-5.1); Sodium 140 mmol/L (137-145)
== END ==
PROVIDERS: PCP Internal Medicine; Referring Provider Internal Medicine; Visit Provider Internal Medicine
DX: E11.65 Type 2 diabetes mellitus with hyperglycemia (principal); I10 Essential (primary) hypertension
CPT/HCPCS: 36415; 80048; 83036

== ENCOUNTER → 2022-11-03 10:08 | Outpatient (CLI) | payer OTHER, MEDICAID, SELFPAY ==
[2022-11-03 12:01] LABS: BUN Creatinine Ratio 18.1 (6-22); Blood Urea Nitrogen 47 mg/dL (9-20); Calcium 8.5 mg/dL (8.4-10.2); Carbon Dioxide 38 mmol/L (22-32); Chloride 96 mmol/L (98-107); Estimated Glomerular Filt Rate 25 mL/min (>60); Glucose 92 mg/dL (80-110); HEMOLYSIS < 15 (0-50); Potassium 3.9 mmol/L (3.4-5.1); Sodium 139 mmol/L (137-145)
[2022-11-03 13:09] LABS: Creatinine Urine Random 64.7 mg/dL; Protein (Total) Urine Random 6 mg/dL (0-12); Protein Creatinine Ratio Urine 0.09 GRAM/24H
== END ==
PROVIDERS: PCP Internal Medicine; Referring Provider Internal Medicine Cardiovascular Disease; Visit Provider Internal Medicine Cardiovascular Disease
DX: I48.91 Unspecified atrial fibrillation (principal); I35.0 Nonrheumatic aortic (valve) stenosis
CPT/HCPCS: 36415; 80048; 82570; 84156